=== PATIENT | male | born 1960 | race American Indian/Alaskan Native ===

== ENCOUNTER 2016-07-26 10:04 | Emergency (ER) | payer BC ==
[2016-07-26] MEDS ORDERED: CATAPRES PO ONE (16:39)
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
--- NOTE | 2016-07-26 17:18 | Cat Scan Report ---
FINAL REPORT PROCEDURE: CT HEAD/BRAIN WO CON TECHNIQUE: Computerized tomography of the head was performed without contrast material. HISTORY: dizziness COMPARISON: No prior studies are available for comparison. FINDINGS: Skull and scalp: Normal. Paranasal sinuses: Normal. Ventricles and subarachnoid spaces: Normal. Cerebrum: No evidence of hemorrhage, acute infarction or mass . Cerebellum and brainstem: No evidence of hemorrhage, acute infarction or mass. Vasculature: Dominant right vertebral artery. Comments: None. IMPRESSION: No acute intracranial pathology seen at this time
[2016-07-26 17:22] LABS: Basophils % (Auto) 0.8 % (0.0-1.8); Eosinophils % (Auto) 1.2 % (0.0-4.3); Hematocrit 45.1 % (35.5-45.6); Mean Corpuscular HGB Conc 33 % (32-34); Mean Corpuscular Hemoglobin 32 pg (28-32); Mean Corpuscular Volume 97 fl (84-94); Platelet Count 217 K/mm3 (140-440); Red Blood Count 4.67 M/mm3 (3.65-5.03); Red Cell Distribution Width 14.2 % (13.2-15.2); White Blood Count 5.2 K/mm3 (4.5-11.0)
[2016-07-26 17:42] LABS: Creatine Kinase MB 4.3 ng/mL (0.0-4.0)
[2016-07-26 17:43] LABS: Anion Gap 22 mmol/L; Blood Urea Nitrogen 10 mg/dL (9-20); Calcium 8.8 mg/dL (8.4-10.2); Carbon Dioxide 28 mmol/L (22-30); Chloride 94.8 mmol/L (98-107); Creatine Kinase 575 units/L (55-170); Glucose 136 mg/dL (75-100); Potassium 4.5 mmol/L (3.6-5.0); Sodium 140 mmol/L (137-145)
--- NOTE | 2016-07-26 18:23 | Emergency Department Report ---
Blank Doc - Documentation Documentation: Addendum secondary to technical difficulties [employer] (unable to add addendum to initial chart) BP 146/83. CT head (read by radiologist)-no acute intracranial pathology at this time Laboratory Tests 07/26/16 07/26/16 07/26/16 10:20 17:05 17:05 WBC 5.2 RBC 4.67 Hgb 15.0 Hct 45.1 MCV 97 H MCH 32 MCHC 33 RDW 14.2 Plt Count 217 Lymph % (Auto) 38.1 H Prentiss % (Auto) 8.1 H Eos % (Auto) 1.2 Baso % (Auto) 0.8 Lymph # 2.0 Prentiss # 0.4 Eos # 0.1 Baso # 0.0 Seg Neutrophils % 51.8 Seg Neutrophils # 2.7 Sodium 140 Potassium 4.5 Chloride 94.8 L Carbon Dioxide 28 Anion Gap 22 BUN 10 Creatinine 1.0 Estimated GFR > 60 BUN/Creatinine Ratio 10.00 Glucose 136 H POC Glucose 75 Calcium 8.8 Total Creatine Kinase 575 H CK-MB (CK-2) 4.3 H CK-MB (CK-2) Rel Index 0.7 Troponin T < 0.010 We'll discharge patient home with close follow-up
[2016-07-26 18:24] VITALS: BP 146/86
== END 2016-07-26 18:28 | disposition home or self-care (01) ==
LOC: ED 10:04
DX: R42 Dizziness and giddiness (principal); R20.9 Unspecified disturbances of skin sensation; I10 Essential (primary) hypertension; F17.200 Nicotine dependence, unspecified, uncomplicated
CPT/HCPCS: 36415; 70450; 80048; 82550; 82553; 82962; 84484; 85025; 93005; 93010; 99284